=== PATIENT | female | born 1960 | race Caucasian/White ===

== ENCOUNTER → 2020-11-22 | Outpatient (CLI) | payer OTHER ==
--- NOTE | 2020-11-22 16:14 | RAD ---
EXAM: XR CERVICAL SPINE 2-3V 11/22/2020 9:26 AM CLINICAL INDICATION: Neck pain COMPARISON: None TECHNIQUE: 2 views of the cervical spine FINDINGS: The cervical spine is viewed to C6-C7 on lateral view. No acute fracture of the visualized cervical spine. Alignment is normal. There are mild degenerative endplate changes throughout the cerv ical spine with relatively preserved disc spaces. Mild multilevel facet arthrosis, greater on the lef t. Prevertebral soft tissue is normal. Lung apices are clear. IMPRESSION: Mild multilevel degenerative disc disease and facet arthrosis. Electronically signed by: Lisa Westfall MD (11/22/2020 4:12 PM) [id number]
== END ==
LOC: PF 08:12
PROVIDERS: ATTEND Family Medicine
DX: M47.812 Spondylosis without myelopathy or radiculopathy, cervical region (principal); M50.30 Other cervical disc degeneration, unspecified cervical region; J44.9 Chronic obstructive pulmonary disease, unspecified; I44.30 Unspecified atrioventricular block
CPT/HCPCS: 72040; 94060; 94640; 94729; 94664